=== PATIENT | male | born 1965 | race Caucasian/White ===

== ENCOUNTER 2018-10-18 07:09 | Day surgery (SDC) | payer OTHER ==
[~2018-10-18] VITALS: Ht 177.8 cm; Wt 75.5 kg
[~2018-10-18 07:09] MED LIST: ALPR.25 PO; BUPR150ER PO
--- NOTE | 2018-10-18 07:35 | NUR ---
10/18/18 0735 Ange Recinos DRAWN, ANTICOAG ADDED, DELIVERED TO OR.
[2018-10-18] MEDS ORDERED: IBUP800 (07:46)
[2018-10-18] MEDS ORDERED: ATEN25 (07:46)
== END 2018-10-18 11:05 | disposition home or self-care (01) ==
LOC: ORSCSDS 07:09
PROVIDERS: Orthopaedic Surgery
PROC: 0LM40ZZ Reattachment of Left Upper Arm Tendon, Open Approach (ICD-10-PCS; principal; 2018-10-18 08:40)
DX: S46.202A Unspecified injury of muscle, fascia and tendon of other parts of biceps, left arm, initial encounter (principal); Z87.891 Personal history of nicotine dependence; F41.8 Other specified anxiety disorders; Z79.899 Other long term (current) drug therapy
CPT/HCPCS: A9270-GY; C1713; J0690; J1100; J2250; J2370; J2405; J2704; J2795; J3010; J7120

== ENCOUNTER 2022-11-13 09:42 | Emergency (ER) | payer OTHER ==
[~2022-11-13] VITALS: Ht 172.7 cm; Wt 68.0 kg
[~2022-11-13 09:42] MED LIST changes: +ATEN25; +IBUP800
[2022-11-13] MEDS ORDERED: LOSA50 PO (09:56)
[2022-11-13 10:12] LABS: BASOPHILS ABSOLUTE AUTO 0.02 K/mm3 (0.00-0.23); BASOPHILS PERCENT AUTO 0 % (0-2); EOSINOPHILS PERCENT AUTO 0 % (0-6); Hematocrit 45.9 % (37.0-53.0); Hemoglobin 15.6 g/dL (13.5-17.5); IMMATURE GRAN ABSOLUTE AUTO 0.01 K/mm3 (0.00-0.10); IMMATURE GRAN PERCENT AUTO 0 % (0-1); LYMPHOCYTES ABSOLUTE AUTO 1.14 K/mm3 (0.84-5.20); LYMPHOCYTES PERCENT AUTO 15 % (21-46); MONOCYTES ABSOLUTE AUTO 0.54 K/mm3 (0.16-1.47); MONOCYTES PERCENT AUTO 7 % (4-13); Mean Corpuscular HGB 32.4 pg (26.0-34.0); Mean Corpuscular Volume 95 fL (80-100); NEUTROPHILS PERCENT AUTO 78 % (41-73); Platelet Count 280 K/mm3 (150-400); RDW Coefficient Variation 13.5 % (11.7-14.2); RDW Standard Deviation 48.4 fL (35.1-46.3); Red Blood Cell Count 4.81 M/mm3 (4.30-5.90); White Blood Cell Count 7.71 K/mm3 (4.00-11.30)
[2022-11-13 10:31] LABS: Albumin/Globulin Ratio 1.2 (0.8-1.8); Bilirubin, Total 0.5 mg/dL (0.1-1.0); Bun/Creatinine Ratio 18.3 (12.0-20.0); Calcium, Blood 8.7 mg/dL (8.5-10.1); Creatinine, Blood 0.93 mg/dL (0.60-1.20); Globulin, Blood 3.4 g/dL (2.2-4.0); Magnesium, Blood 2.4 mg/dL (1.6-2.4); Potassium, Blood 4.3 mmol/L (3.5-5.5); Total Protein, Blood 7.4 g/dL (6.4-8.2)
[2022-11-13 12:21] LABS: U Amphetamine Screen Not Detected; U Barbituate Screen Not Detected; U Benzodiazapine Screen Not Detected; U Buprenorphine Screen Not Detected; U Cannabinoids Screen Not Detected; U Cocaine Screen Not Detected; U Methadone Screen Not Detected; U Methamphetamine Screen Not Detected; U Opiates Screen Not Detected; U Oxycodone Screen DETECTED; U Phencyclidine Screen Not Detected; U Propoxyphene Screen Not Detected
[2022-11-13 14:30] VITALS: BP 115/92
[2022-11-13] MEDS ORDERED: MECL25 PO (14:43)
== END 2022-11-13 14:50 | disposition home or self-care (01) ==
LOC: ER 09:42
PROVIDERS: Student in an Organized Health Care Education/Training Program
DX: R42 Dizziness and giddiness (principal); I10 Essential (primary) hypertension; Z79.899 Other long term (current) drug therapy
CPT/HCPCS: 70450; 70551; 71046; 80053; 83735; 83880; 84484; 85025; 93005; 93010; 96374; 99285-25; A9270; G0480; J2405; J7030

== ENCOUNTER 2023-03-21 16:46 | Emergency (ER) | payer OTHER ==
[~2023-03-21] VITALS: Ht 177.8 cm; Wt 77.1 kg
[~2023-03-21 16:46] MED LIST changes: +LOSA50 PO; +MECL25 PO
[2023-03-21 17:29] VITALS: BP 165/96
== END 2023-03-21 17:38 | disposition home or self-care (01) ==
LOC: ER 16:46
DX: T18.128A Food in esophagus causing other injury, initial encounter (principal); Z79.899 Other long term (current) drug therapy; I10 Essential (primary) hypertension; Z87.891 Personal history of nicotine dependence
CPT/HCPCS: 99283

== ENCOUNTER 2024-01-12 10:57 | Emergency (ER) | payer OTHER ==
[~2024-01-12] VITALS: Ht 177.8 cm; Wt 92.5 kg
[~2024-01-12 10:57] MED LIST changes: +CYCL10 PO; +HYDROCHLOROTH12.5 MG PO; +METO25ER PO; +OXYC5 PO; +PREG100 PO
[2024-01-12] MEDS ORDERED: NS 1,000 ML IV SCH (11:25)
[2024-01-12] MEDS ORDERED: Metoprolol Tartrate 1 MG/ML 5 ML VIAL IV ONE (11:25)
[2024-01-12 11:50] LABS: Albumin, Blood 3.7 g/dL (3.4-5.0); Albumin/Globulin Ratio 1.1 (0.8-1.8); Bilirubin, Total 0.8 mg/dL (0.1-1.0); Bun/Creatinine Ratio 14.2 (12.0-20.0); Calcium, Blood 9.1 mg/dL (8.5-10.1); Creatinine, Blood 0.92 mg/dL (0.60-1.20); Globulin, Blood 3.3 g/dL (2.2-4.0); Magnesium, Blood 1.4 mg/dL (1.6-2.4)
[2024-01-12] MEDS ORDERED: Magnesium Sulf 2 GM/Water 50ML 50 ML IV ONE (12:00)
[2024-01-12 14:11] LABS: BASOPHILS ABSOLUTE AUTO 0.04 K/mm3 (0.00-0.23); BASOPHILS PERCENT AUTO 1 % (0-2); EOSINOPHILS ABSOLUTE AUTO 0.01 K/mm3 (0.00-0.68); EOSINOPHILS PERCENT AUTO 0 % (0-6); Hematocrit 43.1 % (37.0-53.0); Hemoglobin 14.8 g/dL (13.5-17.5); IMMATURE GRAN ABSOLUTE AUTO 0.02 K/mm3 (0.00-0.10); IMMATURE GRAN PERCENT AUTO 0 % (0-1); LYMPHOCYTES ABSOLUTE AUTO 1.31 K/mm3 (0.84-5.20); LYMPHOCYTES PERCENT AUTO 18 % (21-46); MONOCYTES ABSOLUTE AUTO 0.66 K/mm3 (0.16-1.47); MONOCYTES PERCENT AUTO 9 % (4-13); Mean Corpuscular HGB 33.2 pg (26.0-34.0); Mean Corpuscular HGB Conc 34.3 g/dL (31.5-36.5); Mean Corpuscular Volume 97 fL (80-100); Mean Platelet Volume 9.5 fL (9.1-12.4); NEUTROPHILS ABSOLUTE AUTO 5.19 K/mm3 (1.96-9.15); NEUTROPHILS PERCENT AUTO 72 % (41-73); Platelet Count 201 K/mm3 (150-400); RDW Coefficient Variation 14.6 % (11.7-14.2); RDW Standard Deviation 51.1 fL (35.1-46.3); Red Blood Cell Count 4.46 M/mm3 (4.30-5.90); White Blood Cell Count 7.23 K/mm3 (4.00-11.30)
[2024-01-12] MEDS ORDERED: METO25 PO ×2 (14:35→14:45)
[2024-01-12 14:45] VITALS: BP 161/98
== END 2024-01-12 15:30 | disposition home or self-care (01) ==
LOC: ER 10:57
PROVIDERS: Student in an Organized Health Care Education/Training Program
DX: I48.92 Unspecified atrial flutter (principal); I24.89 Other forms of acute ischemic heart disease; I10 Essential (primary) hypertension; R79.89 Other specified abnormal findings of blood chemistry; E83.42 Hypomagnesemia; F43.10 Post-traumatic stress disorder, unspecified; Z87.891 Personal history of nicotine dependence; Z79.899 Other long term (current) drug therapy; Z88.8 Allergy status to other drugs, medicaments and biological substances
CPT/HCPCS: 71045; 80053; 83735; 83880; 84484; 85025; 93005; 93010; 93242; 96365; 99285-25; J3475; J7030

== ENCOUNTER 2024-04-08 20:23 | Inpatient (IN) | payer OTHER ==
[~2024-04-08] VITALS: Ht 177.8 cm; Wt 93.9 kg
[~2024-04-08 20:23] MED LIST changes: +METO25 PO
[2024-04-08 20:56] LABS: BASOPHILS ABSOLUTE AUTO 0.05 K/mm3 (0.00-0.23); BASOPHILS PERCENT AUTO 1 % (0-2); EOSINOPHILS ABSOLUTE AUTO 0.07 K/mm3 (0.00-0.68); EOSINOPHILS PERCENT AUTO 1 % (0-6); Hematocrit 36.6 % (37.0-53.0); Hemoglobin 12.7 g/dL (13.5-17.5); IMMATURE GRAN ABSOLUTE AUTO 0.01 K/mm3 (0.00-0.10); IMMATURE GRAN PERCENT AUTO 0 % (0-1); LYMPHOCYTES ABSOLUTE AUTO 1.37 K/mm3 (0.84-5.20); LYMPHOCYTES PERCENT AUTO 20 % (21-46); MONOCYTES ABSOLUTE AUTO 1.06 K/mm3 (0.16-1.47); MONOCYTES PERCENT AUTO 15 % (4-13); Mean Corpuscular HGB 33.8 pg (26.0-34.0); Mean Corpuscular HGB Conc 34.7 g/dL (31.5-36.5); Mean Corpuscular Volume 97 fL (80-100); NEUTROPHILS ABSOLUTE AUTO 4.48 K/mm3 (1.96-9.15); NEUTROPHILS PERCENT AUTO 64 % (41-73); Platelet Count 170 K/mm3 (150-400); RDW Coefficient Variation 15.2 % (11.7-14.2); RDW Standard Deviation 53.9 fL (35.1-46.3); Red Blood Cell Count 3.76 M/mm3 (4.30-5.90); White Blood Cell Count 7.04 K/mm3 (4.00-11.30)
[2024-04-08 21:42] LABS: Albumin, Blood 3.5 g/dL (3.4-5.0); Bilirubin, Total 0.4 mg/dL (0.1-1.0); Calcium, Blood 9.1 mg/dL (8.5-10.1); Creatinine, Blood 2.92 mg/dL (0.60-1.20); Globulin, Blood 3.6 g/dL (2.2-4.0); Potassium, Blood 4.2 mmol/L (3.5-5.5); Total Protein, Blood 7.1 g/dL (6.4-8.2)
[2024-04-09] MEDS ORDERED: NS 1,000 ML IV SCH (02:30)
[2024-04-09] MEDS ORDERED: Pregabalin 75 MG Cap PO ONE (02:35)
[2024-04-09] MEDS ORDERED: OxyCODONE HCL 5 MG TAB PO ONE (02:35)
[2024-04-09] MEDS ORDERED: Magnesium Sulf 2 GM/Water 50ML 50 ML IV ONE (02:40)
[2024-04-09] MEDS ORDERED: FLU VACC TS2024-25(6MOS UP)/PF 45 MCG/0.5 ML SYRINGE IM SCH (03:55)
[2024-04-09] MEDS ORDERED: Acetaminophen 325 MG TABLET PO PRN (04:00)
[2024-04-09] MEDS ORDERED: Bisacodyl 10 MG Supp PR PRN (04:00)
[2024-04-09] MEDS ORDERED: Magnesium Hydroxide Conc 10 ML UDC PO PRN (04:00)
[2024-04-09] MEDS ORDERED: Metoprolol Tartrate 25 MG Tab PO PRN (04:05)
[2024-04-09] MEDS ORDERED: OxyCODONE HCL 5 MG TAB PO PRN (04:05)
[2024-04-09 05:48] LABS: BASOPHILS ABSOLUTE AUTO 0.04 K/mm3 (0.00-0.23); BASOPHILS PERCENT AUTO 1 % (0-2); EOSINOPHILS ABSOLUTE AUTO 0.05 K/mm3 (0.00-0.68); EOSINOPHILS PERCENT AUTO 1 % (0-6); Hematocrit 34.6 % (37.0-53.0); Hemoglobin 11.5 g/dL (13.5-17.5); IMMATURE GRAN ABSOLUTE AUTO 0.02 K/mm3 (0.00-0.10); IMMATURE GRAN PERCENT AUTO 0 % (0-1); LYMPHOCYTES ABSOLUTE AUTO 1.55 K/mm3 (0.84-5.20); LYMPHOCYTES PERCENT AUTO 25 % (21-46); MONOCYTES ABSOLUTE AUTO 0.93 K/mm3 (0.16-1.47); MONOCYTES PERCENT AUTO 15 % (4-13); Mean Corpuscular HGB 33.2 pg (26.0-34.0); Mean Corpuscular HGB Conc 33.2 g/dL (31.5-36.5); Mean Corpuscular Volume 100 fL (80-100); Mean Platelet Volume 10.2 fL (9.1-12.4); NEUTROPHILS PERCENT AUTO 58 % (41-73); Platelet Count 139 K/mm3 (150-400); RDW Coefficient Variation 15.3 % (11.7-14.2); RDW Standard Deviation 56.2 fL (35.1-46.3); Red Blood Cell Count 3.46 M/mm3 (4.30-5.90); White Blood Cell Count 6.19 K/mm3 (4.00-11.30)
[2024-04-09] MEDS ORDERED: Lactated Ringer's 1,000 ML IV SCH (05:48)
[2024-04-09 06:40] LABS: Albumin, Blood 3.2 g/dL (3.4-5.0); Bilirubin, Total 0.5 mg/dL (0.1-1.0); Bun/Creatinine Ratio 16.4 (12.0-20.0); Calcium, Blood 8.5 mg/dL (8.5-10.1); Creatinine, Blood 2.5 mg/dL (0.60-1.20); Globulin, Blood 3.1 g/dL (2.2-4.0); Potassium, Blood 4.1 mmol/L (3.5-5.5); Total Protein, Blood 6.3 g/dL (6.4-8.2)
[2024-04-09] MEDS ORDERED: Polyethylene Glycol 3350 17 gm PO PRN (07:20)
[2024-04-09] MEDS ORDERED: Simethicone 80 MG Chew PO SCH (07:30)
[2024-04-09 08:15] VITALS: BP 136/99
[2024-04-09] MEDS ORDERED: ACET500 PO (08:24)
[2024-04-09] MEDS ORDERED: ERGO50000 PO (08:25)
[2024-04-09] MEDS ORDERED: ONDA4ODT MM (08:41)
[2024-04-09] MEDS ORDERED: SIME80CH PO (08:42)
[2024-04-09] MEDS ORDERED: SUMA25 PO (08:43)
[2024-04-09] MEDS ORDERED: Vitamin D1000 UNI1 PO (08:45)
[2024-04-09] MEDS ORDERED: MECL25 PO (08:45)
[2024-04-09] MEDS ORDERED: B-12 COMPL1000 MCG/2 IM (08:46)
[2024-04-09] MEDS ORDERED: Pregabalin 50 MG Capsule PO SCH (09:00)
[2024-04-09] MEDS ORDERED: Sennosides 8.6 MG Tab PO SCH (09:00)
[2024-04-09] MEDS ORDERED: Docusate Sodium 100 MG Cap PO SCH (09:00)
[2024-04-09] MEDS ORDERED: Heparin Sodium,Porcine 5,000 UNIT/0.5 ML SDV SC SCH (09:00)
[2024-04-09] MEDS ORDERED: Metoprolol Succinate 25 MG TABCR PO SCH (09:00)
[2024-04-09 15:07] VITALS: BP 122/88
--- NOTE | 2024-04-09 15:58 | NUR ---
VSS, A-Ox4, denies SOB, states 7 out of 10 pain, that was well managed with prn oxycodone, ambulates with SB assist, on RA. Lungs clear, heart regular, NS on tele, bowel sounds normative, LBM today, content of urine and stool, has base line tremor, pt on CIWA scoring 4 during shift. Pt can make needs known, call morse in hand, bed in lowest position.
[2024-04-09 19:09] VITALS: BP 114/67
[2024-04-09] MEDS ORDERED: Docusate Sodium/Senna 1 Tab PO SCH (21:00)
[2024-04-09] MEDS ORDERED: Melatonin 5 MG Tablet PO PRN (23:25)
[2024-04-10 04:23] VITALS: BP 126/89
[2024-04-10 06:41] LABS: Anion Gap 13 mmol/L (3-11); Blood Urea Nitrogen 36 mg/dL (8-24); Bun/Creatinine Ratio 22.4 (12.0-20.0); CO2, Blood 25 mmol/L (21-32); Calcium, Blood 9.4 mg/dL (8.5-10.1); Chloride, Blood 107 mmol/L (98-108); Creatinine, Blood 1.61 mg/dL (0.60-1.20); Glomerular Filtration Rate 49 (60-); Glucose, Blood 105 mg/dL (70-99); Phosphorus, Blood 3.4 mg/dL (2.5-4.9); Potassium, Blood 4.3 mmol/L (3.5-5.5); Sodium, Blood 141 mmol/L (136-145)
--- NOTE | 2024-04-10 07:09 | NUR ---
NO ACUTE CHANGES DURING SHIFT. VSS. PT SLEPT. MORNING LABS SHOW RENAL FUNCTION IMPROVEMENT.
[2024-04-10 07:22] VITALS: BP 138/94
[2024-04-10] MEDS ORDERED: SUMAtriptan succinate 50 MG Tab PO ONE (12:20)
[2024-04-10 15:51] VITALS: BP 129/100
--- NOTE | 2024-04-10 16:49 | NUR ---
VSS. A-Ox4, denies SOB, states 8 out of 10 pain that was well mnaged with prn oxycodone, ambulates with SB assist, on RA. Lungs clear, heart regular, NS on tele, bowel sounds normative, abdomen distented firm and non-tender, continent of urine and bowel, had 1x BM today. Pt can make needs known, call morse in hand, bed in lowest position.
[2024-04-10 17:17] VITALS: BP 147/111
[2024-04-10 17:26] VITALS: BP 145/100
[2024-04-10 19:22] VITALS: BP 143/100
--- NOTE | 2024-04-11 03:03 | NUR ---
SHIFT SUMMARY NO ACUTE EVENTS/DISTRESS NOTED/REPORTED DURING THIS SHIFT. OXYCODONE 5MG PRN ADMINISTERED ORDERED X2 DURING THIS SHIFT. PT C/O 01/23 CHRONIC BACK PAIN. PT EXPRESSES DESIRE TO D/C TODAY. TELE:SR@[email or web address]. PT HAS BEEN RESTING WELL T/O THIS SHIFT. BED AT THE LOWEST POSITION, CALL LIGHT W/I REACH. PT IS ABLE TO MAKE HIS NEEDS KNOWN.
[2024-04-11 04:39] VITALS: BP 115/94
[2024-04-11 05:11] LABS: Albumin, Blood 2.7 g/dL (3.4-5.0); Albumin/Globulin Ratio 0.8 (0.8-1.8); Bilirubin, Total 0.4 mg/dL (0.1-1.0); Bun/Creatinine Ratio 18.9 (12.0-20.0); Calcium, Blood 9.4 mg/dL (8.5-10.1); Creatinine, Blood 1.48 mg/dL (0.60-1.20); Globulin, Blood 3.2 g/dL (2.2-4.0); Potassium, Blood 4.1 mmol/L (3.5-5.5); Total Protein, Blood 5.9 g/dL (6.4-8.2)
[2024-04-11 07:31] VITALS: BP 133/96
[2024-04-11] MEDS ORDERED: HYDR10 PO (12:35)
--- NOTE | 2024-04-11 17:26 | NUR ---
DISCHARGE/SHIFT SUMMARY: A&Ox4. PLEASANT AND COOPERATIVE WITH CARE. CALLS APPROPRIATELY AND IS ABLE TO ADVOCATE NEEDS EFFECTIVELY. AMBULATES INDEPENDENTLY WITHIN ROOM; FAMILY AT BEDSIDE MOST OF SHIFT. CONTINENT OF BOWEL AND BLADDER. MEDS WHOLE WTH FLUIDS. TELE SINUS NAOMI. C/O CHRONIC BACK PAIN FOR WHICH HE REQUESTS PRN OXY 5MG Q4H PRN. CONTINUED C/O ABDOMINAL PAIN AND DISCOMFORT FOR WHICH HE IS BEING FOLLOWED BY [facility]. INSTRUCTIONS TO FOLLOW-UP WITH PRIMARY CARE PROVIDER AND [facility]. IV REMOVED BY THIS RN. PATIENT ESCORTED FROM FLOOR BY VIA WHEELCHAIR WITH ALL BELONGINGS AND DISCHARGE PACKET @ [id number]. TRANSPORTATION PROVIDED BY .
== END 2024-04-11 13:20 | disposition home or self-care (01) | DRG 684 ==
LOC: ER 20:23 → ERHOLD 20:24 → MEDS 20:24 → ENPENDDIS 04-11 11:28 → MEDS 04-11 13:20
PROVIDERS: Family Medicine; Internal Medicine; Student in an Organized Health Care Education/Training Program; ADMIT Student in an Organized Health Care Education/Training Program
DX: N17.9 Acute kidney failure, unspecified (principal); I10 Essential (primary) hypertension; F41.1 Generalized anxiety disorder; G47.00 Insomnia, unspecified; F43.10 Post-traumatic stress disorder, unspecified; G89.29 Other chronic pain; E86.0 Dehydration; R74.01 Elevation of levels of liver transaminase levels; I48.0 Paroxysmal atrial fibrillation; K44.9 Diaphragmatic hernia without obstruction or gangrene; R14.0 Abdominal distension (gaseous); R60.0 Localized edema; T50.2X5A Adverse effect of carbonic-anhydrase inhibitors, benzothiadiazides and other diuretics, initial encounter; I95.2 Hypotension due to drugs; Z96.652 Presence of left artificial knee joint; Z98.1 Arthrodesis status; Z98.84 Bariatric surgery status; Z98.890 Other specified postprocedural states; Z87.891 Personal history of nicotine dependence; Z88.8 Allergy status to other drugs, medicaments and biological substances; Z91.030 Bee allergy status; Z79.899 Other long term (current) drug therapy
CPT/HCPCS: 36415; 71046; 76770; 80053; 80069; 83735; 83880; 84100; 84484; 85025; 93005; 93010; 96361; 96365; 96366; 96372; 99285-25; A9270; G0378; J1644; J3475; J7030; J7120

== ENCOUNTER → 2024-05-13 | Outpatient (CLI) | payer OTHER ==
[~2024-05-13] MED LIST changes: +ACET500 PO; +B-12 COMPL1000 MCG/2 IM; +ERGO50000 PO; +HYDR10 PO; +ONDA4ODT MM; +SIME80CH PO; +SUMA25 PO; +Vitamin D1000 UNI1 PO
[2024-05-13 14:33] LABS: Creatinine Urine 66.6 mg/dL (27.00-270.00); Microalbumin, Urine Quant. 5.48 mg/L (0.000-20.000); Protein, Urine Quantitative 7.9 mg/dL (0.0-11.9)
== END ==
LOC: LAB 09:30 → LAB SHORT 09:30
PROVIDERS: Internal Medicine Nephrology
DX: E11.21 Type 2 diabetes mellitus with diabetic nephropathy (principal); N18.30 Chronic kidney disease, stage 3 unspecified; D63.1 Anemia in chronic kidney disease; R80.9 Proteinuria, unspecified; N25.81 Secondary hyperparathyroidism of renal origin; E55.9 Vitamin D deficiency, unspecified; R76.9 Abnormal immunological finding in serum, unspecified; R94.5 Abnormal results of liver function studies; D51.8 Other vitamin B12 deficiency anemias; D50.9 Iron deficiency anemia, unspecified; D52.8 Other folate deficiency anemias
CPT/HCPCS: 81050; 82043; 82570; 84156

== ENCOUNTER 2024-07-03 09:44 | Emergency (ER) | payer OTHER ==
[~2024-07-03] VITALS: Ht 177.8 cm; Wt 93.0 kg
[2024-07-03] MEDS ORDERED: NS 1,000 ML IV SCH (10:00)
[2024-07-03] MEDS ORDERED: Metoprolol Tartrate 1 MG/ML 5 ML VIAL IV ONE ×2 (10:00→13:25)
[2024-07-03 10:03] LABS: BASOPHILS ABSOLUTE AUTO 0.05 K/mm3 (0.00-0.23); BASOPHILS PERCENT AUTO 1 % (0-2); EOSINOPHILS ABSOLUTE AUTO 0.02 K/mm3 (0.00-0.68); EOSINOPHILS PERCENT AUTO 0 % (0-6); Hemoglobin 13.4 g/dL (13.5-17.5); IMMATURE GRAN ABSOLUTE AUTO 0.02 K/mm3 (0.00-0.10); IMMATURE GRAN PERCENT AUTO 0 % (0-1); LYMPHOCYTES ABSOLUTE AUTO 1.16 K/mm3 (0.84-5.20); LYMPHOCYTES PERCENT AUTO 20 % (21-46); MONOCYTES ABSOLUTE AUTO 0.72 K/mm3 (0.16-1.47); MONOCYTES PERCENT AUTO 13 % (4-13); Mean Corpuscular HGB Conc 34.4 g/dL (31.5-36.5); Mean Corpuscular Volume 105 fL (80-100); NEUTROPHILS ABSOLUTE AUTO 3.79 K/mm3 (1.96-9.15); NEUTROPHILS PERCENT AUTO 66 % (41-73); Platelet Count 169 K/mm3 (150-400); RDW Standard Deviation 53.9 fL (35.1-46.3); Red Blood Cell Count 3.72 M/mm3 (4.30-5.90); White Blood Cell Count 5.76 K/mm3 (4.00-11.30)
[2024-07-03 10:22] LABS: Albumin, Blood 3.4 g/dL (3.4-5.0); Bilirubin, Total 0.9 mg/dL (0.1-1.0); Bun/Creatinine Ratio 16.1 (12.0-20.0); Calcium, Blood 8.8 mg/dL (8.5-10.1); Creatinine, Blood 1.43 mg/dL (0.60-1.20); Globulin, Blood 3.5 g/dL (2.2-4.0); Potassium, Blood 4.5 mmol/L (3.5-5.5); Total Protein, Blood 6.9 g/dL (6.4-8.2)
[2024-07-03 11:00] VITALS: BP 110/81
[2024-07-03] MEDS ORDERED: FentaNYL Citrate 50 MCG/ML 2 ML Injection IV ONE (11:00)
[2024-07-03] MEDS ORDERED: Ondansetron HCl 2 MG / ML 2ML Vial IV ONE (11:05)
[2024-07-03] MEDS ORDERED: Nitroglycerin 0.4 MG SUBL SL ONE (11:40)
== END 2024-07-03 15:15 | disposition home or self-care (01) ==
LOC: ER 09:44
PROVIDERS: Emergency Medicine
DX: I48.0 Paroxysmal atrial fibrillation (principal); R07.89 Other chest pain; N28.9 Disorder of kidney and ureter, unspecified; I10 Essential (primary) hypertension; Z88.8 Allergy status to other drugs, medicaments and biological substances; Z91.030 Bee allergy status; Z79.899 Other long term (current) drug therapy; Z79.01 Long term (current) use of anticoagulants; Z87.891 Personal history of nicotine dependence
CPT/HCPCS: 71045; 80053; 84484; 85025; 93005; 93010; 96361; 96372-59; 96374; 96375; 96376; 99285-25; A9270; J2405; J3010; J7030